=== PATIENT | female | born 1950 | race Caucasian/White ===

== ENCOUNTER 2017-12-22 09:19 | Day surgery (SDC) | payer MEDICARE, BC ==
[~2017-12-22 09:19] MED LIST: Metoclopramide 10 MG/2 ML SDV IV PRN; Sodium Chloride 0.9% 1,000 ML IV SCH; Sodium Chloride 0.9% 10 ML Syringe FLUSH PRN
[2017-12-22] MEDS ORDERED: Propofol 1,000 MG/100 ML SDV ONE (12:00)
[2017-12-22] MEDS ORDERED: Midazolam 1 MG/ML 5 ML SDV ONE (12:00)
--- NOTE | 2017-12-22 13:32 | OR ---
DATE OF OPERATION: 12/22/2017 PREOPERATIVE DIAGNOSIS: Screening colonoscopy. POSTOPERATIVE DIAGNOSIS: Screening colonoscopy. PROCEDURE: Colonoscopy. ANESTHESIA: MAC. ESTIMATED BLOOD LOSS: None. COMPLICATIONS: None. INDICATIONS FOR THE PROCEDURE: The patient is a 67-year-old female, who last had a colonoscopy 15 years ago. Denies any change in bowel habits since that time. She is here today for a screening colonoscopy. DESCRIPTION OF PROCEDURE: Informed consent was obtained from the patient. The patient was taken to the operating room, placed on table in left lateral decubitus position. Monitored anesthesia care was administered. Digital rectal exam was normal. Colonoscope was then advanced through the anus and directed toward the cecum. Abdominal pressure was utilized. Cecum was reached and identified by appendiceal orifice and ileocecal valve. Colonoscope was then slowly withdrawn. No masses. No polyps. No areas of ischemia or inflammation. No diverticula were noted. Retroflexion was then performed in the rectum and did show some internal hemorrhoids, which were not bleeding. Colonoscope was then withdrawn. FINDINGS: Grade 2 internal hemorrhoids. Otherwise, normal colonoscopy. RECOMMENDATIONS: Would recommend repeat screening colonoscopy in 10 years. DAMIAN/BYRON /[id number]
== END 2017-12-22 13:34 | disposition home or self-care (01) ==
LOC: LB.SDS 09:19
PROVIDERS: ATTEND Surgery
DX: Z12.11 Encounter for screening for malignant neoplasm of colon (principal); K64.1 Second degree hemorrhoids; I10 Essential (primary) hypertension; E78.5 Hyperlipidemia, unspecified; Z88.2 Allergy status to sulfonamides
CPT/HCPCS: J2250; J3490; J7040